=== PATIENT | male | born 1985 | race Caucasian/White ===

== ENCOUNTER 2017-05-19 19:26 | Emergency (ER) | payer MEDICAID ==
[~2017-05-19] VITALS: Ht 190.5 cm; Wt 92.1 kg
[2017-05-19 19:35] VITALS: Ht 190.5 cm; Wt 92.1 kg
[2017-05-19 21:00] VITALS: BP 128/78
== END 2017-05-19 21:00 | disposition home or self-care (01) ==
LOC: ED 19:26
DX: T15.12XA Foreign body in conjunctival sac, left eye, initial encounter (principal); W22.8XXA Striking against or struck by other objects, initial encounter; Y93.89 Activity, other specified; Y99.8 Other external cause status; Y92.89 Other specified places as the place of occurrence of the external cause